=== PATIENT | female | born 1970 | race African-American/Black ===

== ENCOUNTER 2017-05-10 18:30 | Emergency (ER) | payer SELFPAY ==
[2017-05-10 20:18] LABS: Bilirubin Negative (Negative); Blood, Urine Small (Negative); Clarity CLOUDY (Clear); Glucose, Urine (Dipstick) Negative (Negative); Leukocyte Large (Negative); Nitrite Negative (Negative); Protein, Urine (Dipstick) Negative (Neg-Trace); Specific Gravity, Urine 1.008 (1.002-1.036); Urobilinogen 0.2 mg/dL (0.2-1.0)
[2017-05-10 20:19] LABS: Bacteria/HPF Rare-Few HPF (None Seen); Hyaline Casts/LPF 0-3 HYALINE CAST LPF (0-3 Hyaline); RBC/HPF 0-3 HPF (0-3); Squamous Epithelial None Seen HPF (0-3); Yeast-AUWi Flag 20.1 (0-25.0)
[2017-05-10 20:22] LABS: Pregnancy Test - Urine (BHCG) Negative (Negative); Pregu Control Background? CLEAR/WHITE (CLR/WHITE); Pregu Control Bar Appear? YES (CONTROL BAR); Specific Gravity 1.008 (1.002-1.036)
[2017-05-10] MEDS ORDERED: Magnesium Citrate 300 ML BOT ONE (20:57)
== END 2017-05-10 21:10 | disposition home or self-care (01) ==
LOC: ERS 18:30
DX: K59.00 Constipation, unspecified (principal); N39.0 Urinary tract infection, site not specified; I12.0 Hypertensive chronic kidney disease with stage 5 chronic kidney disease or end stage renal disease; N18.6 End stage renal disease; F32.9 Major depressive disorder, single episode, unspecified
CPT/HCPCS: 81003; 81015; 81025; 99284

== ENCOUNTER 2017-06-07 08:03 | Outpatient (CLI) | payer SELFPAY | END 2017-06-07 08:04 | disposition home or self-care (01) | LOC: BICMAMMO 08:03 | PROVIDERS: ATTEND Nurse Practitioner Family | DX: Z12.31 Encounter for screening mammogram for malignant neoplasm of breast (principal); Z00.00 Encounter for general adult medical examination without abnormal findings; Z80.3 Family history of malignant neoplasm of breast | CPT/HCPCS: 77067 ==

== ENCOUNTER 2018-08-04 15:25 | Emergency (ER) | payer SELFPAY ==
[~2018-08-04 15:25] MED LIST: ISOVUE-370 76%-LOCM 1 ML ONE
--- NOTE | 2018-08-04 15:50 | RAD ---
Chest AP view INDICATION: Shortness of breath with labored breathing COMPARISON: Prior chest radiograph dated August 15, 2005 FINDINGS:There is widening of the right paratracheal space. Heart size is normal. Pulmonary vasculatu re appears within normal limits. The lungs are clear. No pleural effusion or pneumothorax is evident. No acute osseous abnormality is evident. IMPRESSION: Widening of the right paratracheal space may reflect lymphadenopathy or a vascular anomal y such as an aneurysm. Infiltrating mass in this location cannot be entirely excluded. Recommend further evaluation with a CT of the thorax utilizing IV contrast.
[2018-08-04 15:56] LABS: #Eosinphils 0.1 thou/uL (0.0-0.7); #Lymphocytes 2.9 thou/uL (1.20-3.40); #Monocytes 0.5 thou/uL (0.11-0.59); #Neutrophils 3.7 thou/uL (1.40-6.50); %Basophils 0.5 % (0.0-1.0); %Eosinophils 1.2 % (0.0-10.0); %Lymphocytes 40.5 % (21.0-51.0); %Monocytes 6.4 % (0.0-10.0); %Neutrophils 51.4 % (42.0-75.0); Hemoglobin 11.8 g/dL (12.0-16.0); Mean Corpuscular HGB CONC 32.2 g/dL (32.0-36.0); Mean Corpuscular Volume 86.9 fL (78.0-98.0); Mean Platelet Volume 6.7 fL (7.4-10.4); Platelet Count 294 thou/uL (130-400); RBC Distribution Width 12.9 % (11.5-14.5); White Blood Cell (WBC) Count 7.2 thou/uL (4.8-10.8)
[2018-08-04] MEDS ORDERED: Nitroglycerin 2% Ointment 1 INCH/1 GM Packet ONE (16:13)
[2018-08-04] MEDS ORDERED: Lidocaine Viscous Sol 2% 15 ml UD Cup ONE (16:13)
[2018-08-04] MEDS ORDERED: Mag-Al 1200 mg/1200 mg/30 ML UDCUP ONE (16:13)
[2018-08-04] MEDS ORDERED: Aspirin Chewable 81 MG TAB ONE (16:13)
[2018-08-04 16:16] LABS: ALT (SGPT) 7 U/L (8-55); AST (SGOT) 16 U/L (5-34); Albumin 3.8 g/dL (3.5-5.0); Alkaline Phosphatase 65 U/L (40-150); Anion Gap 13 mmol/L (10-20); BUN (Urea Nitrogen) 18 mg/dL (7.0-18.7); Bilirubin, Total 0.3 mg/dL (0.2-1.2); CK (CPK) 104 U/L (29-168); Calc. Creatinine Clearance 0 mL/min (70-130); Calcium 9.1 mg/dL (7.8-10.44); Carbon Dioxide 21 mmol/L (22-29); Chloride 107 mmol/L (98-107); Estimated GFR-MDRD 53; Glucose 104 mg/dL (70-105); Potassium 3.4 mmol/L (3.5-5.1); Protein, Total 6.8 g/dL (6.0-8.3); Sodium 138 mmol/L (136-145)
[2018-08-04] MEDS ORDERED: Morphine 4 MG/ML VIAL ONE ×2 (16:54→20:24)
[2018-08-04 17:32] LABS: Pregnancy Test - Urine (BHCG) Negative (Negative); Pregu Control Background? CLEAR/WHITE (CLR/WHITE); Pregu Control Bar Appear? YES (CONTROL BAR)
--- NOTE | 2018-08-04 19:11 | CT ---
CT OF THE THORAX UTILIZING IV CONTRAST AND 3D REFORMATTED IMAGING: Indication: History of hypertension, shortness of breath, diaphoresis and bilateral upper extremity p ain. Comparison: Chest radiograph, 08-04-18; chest radiograph 08-15-05. FINDINGS: There is an aberrant right subclavian artery. There is prominent aneurysmal dilatation of the aberran t right subclavian artery along the right paratracheal region measuring up to 3.8 cm. The right subcl jyothi artery is diffusely aneurysmal throughout its course. There is an additional 3.7 cm aneurysm se en involving the right axillary artery with an area of eccentric mural thrombus. The right common car otid artery, left common carotid artery, and left subclavian artery are of normal caliber. Visualized aspects of the left axillary artery is normal caliber. There is a small right pleural effusion. Ther e are scattered areas of subsegmental volume loss. Due to the aberrant right subclavian artery, right subclavian artery aneurysm and aortic arch there is mild narrowing of the midline trachea. There are numerous varicosities seen involving the upper chest wall. No acute osseous abnormality is evident. IMPRESSION: 1. 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 2. 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 3. Vascular surgical consultation is recommended. 4. Small right pleural effusion with scattered areas of subsegmental volume loss. POS: BH
[2018-08-04] MEDS ORDERED: Ondansetron PF 4 MG/2 ML Vial ONE (20:24)
== END 2018-08-04 21:35 | disposition short-term general hospital (02) ==
LOC: ERS 15:25
DX: I72.1 Aneurysm of artery of upper extremity (principal); I72.8 Aneurysm of other specified arteries; I12.0 Hypertensive chronic kidney disease with stage 5 chronic kidney disease or end stage renal disease; N18.6 End stage renal disease; Z79.899 Other long term (current) drug therapy
CPT/HCPCS: 36415; 71045; 71275; 80053; 81025; 82550; 84484; 85025; 93005; 96374; 96375; 96376; J2270; J2405; Q9966

== ENCOUNTER 2018-11-15 02:39 | Observation (INO) | payer SELFPAY ==
[2018-11-15] MEDS ORDERED: Metoprolol Tartrate 5 MG/5 ML VIAL ONE (03:04)
[2018-11-15] MEDS ORDERED: Nitroglycerin 2% Ointment 1 INCH/1 GM Packet ONE (03:04)
[2018-11-15] MEDS ORDERED: Aspirin Chewable 81 MG TAB ONE (03:04)
[2018-11-15 03:59] LABS: #Lymphocytes 2.1 thou/uL (1.20-3.40); #Monocytes 0.6 thou/uL (0.11-0.59); #Neutrophils 5.2 thou/uL (1.40-6.50); %Basophils 0.1 % (0.0-1.0); %Eosinophils 0.4 % (0.0-10.0); %Lymphocytes 26.7 % (21.0-51.0); %Monocytes 7.3 % (0.0-10.0); %Neutrophils 65.5 % (42.0-75.0); Hemoglobin 9.7 g/dL (12.0-16.0); Mean Corpuscular HGB CONC 32.8 g/dL (32.0-36.0); Mean Corpuscular Hemoglobin 25.1 pg (27.0-31.0); Mean Corpuscular Volume 76.6 fL (78.0-98.0); Mean Platelet Volume 7.3 fL (7.4-10.4); Platelet Count 369 thou/uL (130-400); RBC Distribution Width 16.3 % (11.5-14.5); Red Blood Cell (RBC) Count 3.86 mill/uL (4.20-5.40); White Blood Cell (WBC) Count 7.9 thou/uL (4.8-10.8)
[2018-11-15 04:16] LABS: ALT (SGPT) 15 U/L (8-55); AST (SGOT) 28 U/L (5-34); Albumin 3.8 g/dL (3.5-5.0); Alkaline Phosphatase 107 U/L (40-150); Anion Gap 14 mmol/L (10-20); BUN (Urea Nitrogen) 13 mg/dL (7.0-18.7); Bilirubin, Total 0.4 mg/dL (0.2-1.2); CK (CPK) 34 U/L (29-168); Calc. Creatinine Clearance 0 mL/min (70-130); Calcium 9.8 mg/dL (7.8-10.44); Carbon Dioxide 23 mmol/L (22-29); Chloride 104 mmol/L (98-107); Estimated GFR-MDRD 81; Globulin 3.9 g/dL (2.4-3.5); Glucose 107 mg/dL (70-105); Protein, Total 7.7 g/dL (6.0-8.3); Sodium 138 mmol/L (136-145)
[2018-11-15] MEDS ORDERED: Acetaminophen 500 MG TAB ONE (04:48)
[2018-11-15] MEDS ORDERED: cefTRIAXone\\ROCEPHIN 2 GM VIAL ONE (04:48)
[2018-11-15] MEDS ORDERED: Azithromycin 500 MG VIAL ONE (05:18)
[2018-11-15] MEDS ORDERED: Amoxicillin/Potassium Clav 250 MG TAB ONE (05:18)
[2018-11-15] MEDS ORDERED: Potassium Chloride 20 MEQ TAB ONE (05:18)
[2018-11-15] MEDS ORDERED: Ondansetron PF 4 MG/2 ML Vial IVP PRN (06:04)
[2018-11-15] MEDS ORDERED: Ondansetron ODT 4 MG TAB PO PRN (06:04)
[2018-11-15] MEDS ORDERED: Acetaminophen 325 MG TAB PO PRN (06:04)
[2018-11-15] MEDS ORDERED: Acetaminophen 650 MG Suppository PR PRN (06:04)
[2018-11-15 06:05] VITALS: BMI 27.1
[2018-11-15 07:19] LABS: Troponin I Less than 0.010 ng/mL (< 0.028)
--- NOTE | 2018-11-15 07:26 | CT ---
CTA CHEST WITH CONTRAST WITH 3D VOLUME RENDERING: Date: 11/15/18 COMPARISON: 08/04/18. CLINICAL HISTORY: New onset chest pain. FINDINGS: Interval placement of endovascular graft at the level of the distal aortic arch and descending thorac ic aorta, which excludes the previously documented aneurysmal dilatation of aberrant right subclavian artery. Noncontrast opacified dilatation of this structure does remain, although incompletely assess ed. Prominence of the right axillary artery is again demonstrated, incompletely evaluated. Stable mil d ectasia of the ascending thoracic aorta is present at 3.6 cm. There is no evidence of a large, central filling defect of the pulmonary arterial system. Scattered b ilateral pulmonary parenchymal opacities indicate atelectasis. No evidence of significant pleural flu id. Trace pericardial fluid is seen. Small hypoattenuation of the left hepatic lobe is incidentally n oted, grossly stable. There is incomplete assessment of vague hypoattenuation of the partially imaged superior pole of the right kidney. No acute osseous abnormality. IMPRESSION: 1. No large, central pulmonary embolus. 2. Interval performance of endograft placement of the aortic arch and ascending thoracic aorta exclu ding origin of previously noted prominent aneurysmal dilatation of the aberrant right subclavian apple ry. Prominence of the right axillary artery remains, although incompletely assessed. There is ectasia of the ascending thoracic aorta, stable, measuring approximately 3.6 cm. 3. Bilateral pulmonary parenchymal atelectasis. POS: NWK
--- NOTE | 2018-11-15 07:43 | HP ---
PRIMARY CARE DOCTOR: CODE STATUS: Full code. TIME OF EVALUATION: 6 a.m. CHIEF COMPLAINT: Chest pain. HISTORY OF PRESENT ILLNESS: A 47 years old female patient with past medical history of AAA, hypertension, CABG x3 vessel, end-stage renal disease that has resolved , not on hemodialysis anymore. The patient presented with chest pain that was constant since yesterday. No clear triggers, no alleviating factors. Symptoms are on the left side. No specific radiation. Pain was 8/10. REVIEW OF SYSTEMS: CONSTITUTIONAL: No fever, chills, or generalized weakness. RESPIRATORY: No cough, sputum production, or shortness of breath. CARDIOVASCULAR: The patient had chest pain. No palpitation. GASTROINTESTINAL: No nausea, vomiting, diarrhea, or abdominal pain. BAIT PACKER: No dizziness, headache, or feeling lightheaded. GENITOURINARY: No burning on urination. EXTREMITIES: No leg swelling. All other systems reviewed were negative except for the findings mentioned above. PAST MEDICAL HISTORY: Includes hypertension; end-stage renal disease, not on hemodialysis placement. PAST SURGICAL HISTORY: Dialysis catheter that has been removed and shunt placement in the right upper extremity. PSYCHIATRIC HISTORY: Includes depression. FAMILY HISTORY: Reviewed and non contributory for current presentation. SOCIAL HISTORY: The patient drinks socially once a month. No drugs. No smoking history. KNOWN ALLERGIES: No known drug allergies. REPORTED MEDICATIONS: 1. Hydralazine. 2. Carvedilol. 3. Terazosin. 4. Gabapentin. 5. Coumadin. 6. Nifedipine. 7. Aspirin. PHYSICAL EXAMINATION: VITAL SIGNS: On presentation, blood pressure 162/108 with heart rate 99, respiratory rate was 18, temperature 99.1, pain was 8/10, oxygen saturation 99% on room air. GENERAL APPEARANCE: The patient is alert, oriented, in no acute distress. HEENT: Eyes; normal conjunctivae. Moist oral mucosa. Anicteric. No JVD. RESPIRATORY: Bilateral air entry. Scattered rales on the right side. No wheezes. Symmetric expansion. CARDIOVASCULAR: Normal rate. Regular rhythm. No murmurs. No gallop. No edema. ABDOMEN: Soft. Normal bowel sounds. MUSCULOSKELETAL: Baseline range of motion and strength. SKIN: Warm and intact. No pallor. No rash. No redness. Capillary refill seems to be intact. NEURO: No evidence of any new focal weakness. Cranial nerves seems to be intact. PSYCH: Patient is in good mood. No anxiety. Optimal judgment. DIAGNOSTIC DATA: CAT scan was done. The patient has a right lower lobe infiltrate. Labs were reviewed. The patient has white count of 7.9, hemoglobin 9.7, MCV 76.6, platelet count 369. Chemistry; sodium 138, potassium 3.0, chloride 104, carbon dioxide 23, anion gap 14, BUN 13, creatinine 0.9, GFR 81, glucose 107, calcium 9.8. Total bilirubin 0.4. LFTs were negative. CK 34. Troponin was negative. Beta-natriuretic peptide 26.8. Serum total protein is 7.7, albumin 3.8. ASSESSMENT AND PLAN: The patient will be placed in the hospital with the following medical problems: 1. Right lower lobe infiltrate, possible community-acquired pneumonia. The patient will be started on antibiotics and we will continue for now. We will monitor patient's progress and adjust treatment accordingly. 2. Hypokalemia, potassium 3.0. We will replace electrolytes as needed. 3. Uncontrolled hypertension with systolic blood pressure in 160s, reconcile home medications, we will treat accordingly. The patient is at risk for sepsis, so we will not treat aggressively. 4. Deep vein thrombosis prophylaxis. Job ID: [id number] [facility]
[2018-11-15] MEDS ORDERED: Cefepime 2 GM in Sodium Chloride 0.9% 100 ML IVPB SCH (09:00)
--- NOTE | 2018-11-15 09:44 | RAD ---
CHEST 1 VIEW: Date: 11/15/18 HISTORY: Chest pain. COMPARISON: 08/04/18. FINDINGS: There is a stent projecting over the ascending thoracic aorta, aortic knob, and proximal descending t horacic aorta. There is persistent fullness along the right paratracheal region. Refer to recent CT f or further detail. Normal cardiac silhouette. Linear opacities in the right lung base. No pneumothora x. Surgical clips project over the neck. IMPRESSION: 1. Radiopacity in the right lung base, correlate for atelectasis, pneumonia, or infiltrate. 2. Persistent fullness along the right paratracheal region. Refer to recent CT angiogram of chest fo r further detail. POS: JO-ANN
[2018-11-15 10:23] LABS: Troponin I 0.013 ng/mL (< 0.028)
[2018-11-15] MEDS ORDERED: Potassium Chloride 20 MEQ TAB PO SCH (10:45)
[2018-11-15 11:30] LABS: INR-International Normal Ratio 1.5; Prothrombin Time 18.2 SEC (12.0-14.7)
[2018-11-15] MEDS ORDERED: Carvedilol 25 MG TAB PO SCH (13:15)
[2018-11-15] MEDS ORDERED: Warfarin Sodium 5 MG TAB PO SCH ×2 (13:15→17:00)
[2018-11-15] MEDS: Gabapentin 100 MG CAP PO SCH ×2 (13:42→20:13)
[2018-11-15] MEDS: Enoxaparin Sodium 40 MG/0.4 ML SYRINGE SC SCH (13:42)
[2018-11-15] MEDS ORDERED: ISOVUE-370 76%-LOCM 1 ML ONE (13:48)
[2018-11-15] MEDS ORDERED: NIFEdipine XL 60 MG TAB PO SCH (16:15)
--- NOTE | 2018-11-15 17:54 | PRG ---
DATE OF SERVICE: 11/15/2018 SUBJECTIVE: Ms. Shrestha is a very pleasant 47-year-old female with past medical history significant for recent endograft repair of her descending thoracic aorta and "bypass" surgery, hypertension, and recent initiation of blood thinner for currently unknown reasons, who presented to the emergency department with complaints of shortness of breath. The patient described the shortness of breath with some mild pleuritic chest pain. Her symptoms have much improved. She continues to remain fairly hypertensive with readings in the 170s and 180s despite re-initiation of most of her home medications. The patient has ambulated the halls. She has no nausea or vomiting and is tolerating a diet. OBJECTIVE: VITAL SIGNS: Blood pressure 176/103, pulse 88, O2 saturation is 100% on room air, temperature 98. GENERAL: This patient is a well-appearing female, in no acute distress. HEENT: Head is atraumatic and normocephalic. Mucous membranes are moist. NECK: Trachea is midline. No JVD. CV: S1 and S2. Regular rate and rhythm. No appreciable murmurs, rubs, or gallops. LUNGS: Regular respiratory rate and pattern. Clear to auscultation bilaterally. ABDOMEN: Positive bowel sounds. Soft, nontender. EXTREMITIES: The patient has some left upper extremity swelling. No edema in her lower extremities. SKIN: Warm and dry. NEUROLOGIC: Cranial nerves 2 through 12 are grossly intact. The patient is nonfocal. ASSESSMENT: 1. Shortness of breath and mild pleuritic chest pain at presentation, symptomatically much improved, unknown etiology, echo pending. 2. Recent repair of descending thoracic aortic aneurysm in September 2018 with endograft. 3. Left upper extremity swelling, no deep venous thrombosis per recent upper extremity ultrasound per patient, unclear why the patient is currently on Coumadin. 4. Atelectasis on CTA, no evidence of pneumonia or pulmonary embolism. 5. Prominence of right axillary artery. PLAN: At this time, we will await echo results prior to discharge. The patient is at high risk given her recent hospitalization. I am unclear why she is on Coumadin, and perhaps she may need prophylactic therapy for DVTs. She is followed in [place] and records are currently unavailable. There was some concern initially for pneumonia, however, the patient has had no cough, fever, chills, or white count, and no evidence of pneumonia on the CT. We will continue to monitor. We will reinstate the patient's nifedipine and continue to monitor blood pressure. Regarding her presenting symptoms, she does feel improved. I have advised her to ambulate the halls. Job ID: [id number]
[2018-11-15] MEDS ORDERED: Melatonin 3 MG TAB PO PRN (19:23)
[2018-11-15] MEDS: hydrALAZINE 25 MG TAB PO SCH (20:12)
[2018-11-15] MEDS: Carvedilol 25 MG TAB PO SCH (20:13)
[2018-11-15] MEDS ORDERED: hydrALAZINE 25 MG TAB PO SCH (21:00)
[2018-11-16 05:24] LABS: INR-International Normal Ratio 1.5; Prothrombin Time 18.4 SEC (12.0-14.7)
[2018-11-16 05:25] LABS: #Basophils 0.1 thou/uL (0.0-0.2); #Eosinphils 0.1 thou/uL (0.0-0.7); #Monocytes 0.7 thou/uL (0.11-0.59); #Neutrophils 4.1 thou/uL (1.40-6.50); %Basophils 0.8 % (0.0-1.0); %Eosinophils 1.6 % (0.0-10.0); %Lymphocytes 28.5 % (21.0-51.0); %Monocytes 9.6 % (0.0-10.0); %Neutrophils 59.4 % (42.0-75.0); Hemoglobin 9.4 g/dL (12.0-16.0); Mean Corpuscular HGB CONC 31.2 g/dL (32.0-36.0); Mean Corpuscular Hemoglobin 24.8 pg (27.0-31.0); Mean Corpuscular Volume 79.6 fL (78.0-98.0); Mean Platelet Volume 7.7 fL (7.4-10.4); Platelet Count 330 thou/uL (130-400); RBC Distribution Width 16.2 % (11.5-14.5); Red Blood Cell (RBC) Count 3.79 mill/uL (4.20-5.40); White Blood Cell (WBC) Count 6.9 thou/uL (4.8-10.8)
[2018-11-16 05:33] LABS: Anion Gap 14 mmol/L (10-20); BUN (Urea Nitrogen) 9 mg/dL (7.0-18.7); Calc. Creatinine Clearance 110 mL/min (70-130); Calcium 9.4 mg/dL (7.8-10.44); Carbon Dioxide 20 mmol/L (22-29); Chloride 107 mmol/L (98-107); Estimated GFR-MDRD Greater than 90; Glucose 90 mg/dL (70-105); Potassium 3.6 mmol/L (3.5-5.1); Sodium 137 mmol/L (136-145)
[2018-11-16] MEDS ORDERED: Azithromycin 500 MG in Sodium Chloride 0.9% 250 ML 250 ML IVPB SCH (06:00)
[2018-11-16] MEDS ORDERED: Aspirin 81 mg Enteric Coated Tablet PO SCH (09:00)
[2018-11-16] MEDS ORDERED: Terazosin HCl 1 MG CAP PO SCH (09:00)
[2018-11-16] MEDS ORDERED: NIFEdipine XL 60 MG TAB PO SCH (09:00)
[2018-11-16] MEDS: Carvedilol 25 MG TAB PO SCH (09:20)
[2018-11-16] MEDS: Gabapentin 100 MG CAP PO SCH (09:20)
[2018-11-16] MEDS: hydrALAZINE 25 MG TAB PO SCH (09:20)
[2018-11-16] MEDS: Enoxaparin Sodium 40 MG/0.4 ML SYRINGE SC SCH (09:21)
[2018-11-16 12:07] VITALS: BP 138/87; TEMP 99.6
[2018-11-16 12:49] LABS: Bilirubin Negative (Negative); Blood, Urine 1+ (Negative); Clarity Clear (Clear); Glucose, Urine (Dipstick) Normal (Negative); Leukocyte Negative Leu/uL (Negative); Nitrite Negative (Negative); Protein, Urine (Dipstick) 300 mg/dL (Neg-Trace); Squamous Epithelial 0-3 HPF (0-3); Urobilinogen Normal mg/dL (Less than 2)
[2018-11-16 12:53] LABS: Bacteria/HPF 1+ HPF (None Seen)
[2018-11-16 12:58] LABS: Urine Culture Reflex Yes Yes
--- NOTE | 2018-11-16 13:49 | RAD ---
EXAM: Chest PA and lateral: HISTORY: Fever. COMPARISON: 11/15/2018 FINDINGS: Stable increased density along the right paratracheal region. Heart: Stable cardiac silhouette Aorta: Stable endovascular stent Pulmonary vessels: Normal Costophrenic angles: Costophrenic angles are clear. Lungs: Increased linear opacities in the right lung base which may represent infiltrate superimposed upon scar/atelectasis. Pneumothorax: No pneumothorax Osseous structures: No osseous abnormalities IMPRESSION: Increased density in the right lung base as described above. Continued surveillance is recommended
[2018-11-16] MEDS ORDERED: Warfarin Sodium 5 MG TAB PO SCH (17:00)
[2018-11-16] MEDS ORDERED: Warfarin Sodium 2.5 MG TAB PO SCH (17:00)
--- NOTE | 2018-11-17 01:54 | DIS ---
DATE OF ADMISSION: 11/15/2018 DATE OF DISCHARGE: 11/16/2018 This is Liat Gaxiola PA-C dictating a report for Shabana Barfield MD. CHIEF COMPLAINT: On admission: Shortness of breath and pleuritic chest pain. DISCHARGE DIAGNOSES: 1. Shortness of breath and mild pleuritic chest pain at presentation, resolved, CTA does show some mild atelectasis. 2. Atelectasis, with questionable infiltrate on chest x-ray. 3. Recent repair of descending thoracic aortic aneurysm in September 2018, with endograft. 4. Left upper extremity swelling, no deep vein thrombosis per recent upper extremity ultrasound per patient, unclear why the patient is currently on Coumadin. 5. Prominence of right axillary artery on CT, known finding. BRIEF HOSPITAL COURSE: Ms. Shrestha is a very pleasant 47-year-old female with past medical history significant for recent endograft repair of her descending thoracic aorta and "bypass" surgery, hypertension, and recent initiation of blood thinner for currently unknown reasons, who presented to the emergency room with complaints of shortness of breath. The patient describes the shortness of breath along with some pleuritic type chest pain. She had no orthopnea. She presented to the emergency department for further workup and treatment. Initial x-ray did show a possible right lower lobe infiltrate, however, CTA performed of the chest showed some mild atelectasis, deemed appropriate after recent hospitalization and surgery last month. In any case, pneumonia was initially suspected and she was started on cefepime. The patient had no cough, fever, or chills. Her antibiotics were deescalated. Echocardiogram was ordered, which showed preserved left ventricular systolic function with EF 50% to 55% and some mild concentric LVH. On her 2nd night in the hospital, the patient did have a 99.7 degree temperature. Urinalysis revealed no definitive UTI, and was sent for culture comma. Repeat 2-view chest x-ray did show some continued atelectasis with possible infiltrate in the right. The patient has ambulated and states that she feels well. She has no shortness of breath or further chest pain. She remained mildly hypertensive, and her hydralazine was increased, with good response in her blood pressure. On the morning of my exam, she has no complaints. She has no cough, chest pain, or shortness of breath. No nausea or vomiting. She is tolerating a full diet. DISCHARGE DISPOSITION: Home. DISCHARGE CONDITION: Stable. DISCHARGE MEDICATIONS: 1. Aspirin 81 mg daily. 2. Carvedilol 25 mg p.o. b.i.d. 3. Gabapentin 100 mg p.o. t.i.d. 4. Nifedipine 50 mg p.o. daily. 5. Terazosin 1 mg p.o. daily. 6. Warfarin 5 mg p.o. daily. 7. Hydralazine 75 mg p.o. t.i.d. The patient will also be sent home with a prophylactic course of antibiotic, which is Omnicef 300 mg p.o. q.12 for the next 5 days. DISCHARGE INSTRUCTIONS AND FOLLOWUP: The patient has good and consistent followup with her surgeon and pen rider in [place], and she does have an appointment next week. I have encouraged her to ask the definitive reason why she is on blood thinner. Her INR was subtherapeutic here, but she has blood work scheduled for early next week along with followup as mentioned. She will continue aggressive risk factor modification and monitoring of her blood pressure. All results and findings of testing have been explained to the patient. All questions answered. This case was discussed with Dr. Barfield and he agrees with discharge as outlined above. Job ID: [id number]
== END 2018-11-16 14:54 | disposition home or self-care (01) ==
LOC: ERS 02:39 → 2SW 04:30
PROVIDERS: ADMIT Hospitalist; ATTEND Hospitalist
DX: R06.02 Shortness of breath (principal); R07.81 Pleurodynia; J98.11 Atelectasis; R22.32 Localized swelling, mass and lump, left upper limb; E87.6 Hypokalemia; I12.0 Hypertensive chronic kidney disease with stage 5 chronic kidney disease or end stage renal disease; N18.6 End stage renal disease; F32.9 Major depressive disorder, single episode, unspecified; Z95.1 Presence of aortocoronary bypass graft; Z86.79 Personal history of other diseases of the circulatory system; Z98.890 Other specified postprocedural states; Z79.82 Long term (current) use of aspirin; Z79.01 Long term (current) use of anticoagulants; Z79.899 Other long term (current) drug therapy
CPT/HCPCS: 36415; 71045; 71046; 71275; 80048; 80053; 81001; 82550; 83880; 84484; 85025; 85610; 87040; 87086; 93005; 93306; 96365; 96372; 96375; G0378; J0456; J0692; J0696; J1650; J3490; Q9966

== ENCOUNTER 2020-03-18 14:00 | Inpatient (IN) | payer SELFPAY ==
[2020-03-18] MEDS ORDERED: Dexamethasone 4 mg/ml Vial ONE (14:33)
--- NOTE | 2020-03-18 14:37 | RAD ---
Chest AP view INDICATION: Dyspnea COMPARISON: Chest 2 views dated November 16, 2018 FINDINGS: Lungs: There is bilateral perihilar interstitial and airspace opacities Cardiac silhouette: There is moderate cardiomegaly Pulmonary vasculature: There is pulmonary vascular congestion Pleural spaces: There are tiny bilateral pleural effusions Upper abdomen: No abnormality seen. Osseous structures: No acute osseous abnormality. Additional findings: The aortic endograft stent is unchanged in position. There are surgical clips a gain seen involving the supraclavicular regions bilaterally. IMPRESSION: Findings suspicious for CHF
[2020-03-18 14:43] LABS: #Basophils 0.1 thou/uL (0.0-0.2); #Eosinphils 0.1 thou/uL (0.0-0.7); #Lymphocytes 1.7 thou/uL (1.20-3.40); #Monocytes 0.3 thou/uL (0.11-0.59); #Neutrophils 2.6 thou/uL (1.40-6.50); %Basophils 1.9 % (0.0-1.0); %Eosinophils 3.1 % (0.0-10.0); %Lymphocytes 35.9 % (21.0-51.0); %Monocytes 5.6 % (0.0-10.0); %Neutrophils 53.5 % (42.0-75.0); Mean Corpuscular HGB CONC 32.8 g/dL (32.0-36.0); Mean Corpuscular Hemoglobin 30.5 pg (27.0-31.0); Mean Platelet Volume 8.1 fL (7.4-10.4); Platelet Count 185 thou/uL (130-400); RBC Distribution Width 12.5 % (11.5-14.5); Red Blood Cell (RBC) Count 4.27 mill/uL (4.20-5.40); White Blood Cell (WBC) Count 4.9 thou/uL (4.8-10.8)
[2020-03-18] MEDS ORDERED: Albuterol 200 PUFF (6.7GM INHALER) ONE (14:47)
[2020-03-18 15:01] LABS: ALT (SGPT) 18 U/L (8-55); AST (SGOT) 24 U/L (5-34); Albumin 3.6 g/dL (3.5-5.0); Alkaline Phosphatase 76 U/L (40-110); Anion Gap 13 mmol/L (10-20); BUN (Urea Nitrogen) 16 mg/dL (7.0-18.7); Bilirubin, Total 0.6 mg/dL (0.2-1.2); Calc. Creatinine Clearance 0 mL/min (70-130); Carbon Dioxide 26 mmol/L (22-29); Chloride 108 mmol/L (98-107); Globulin 3.2 g/dL (2.4-3.5); Glucose 85 mg/dL (70-105); Potassium 3.2 mmol/L (3.5-5.1); Protein, Total 6.8 g/dL (6.0-8.3); Sodium 144 mmol/L (136-145)
--- NOTE | 2020-03-18 16:34 | PDOC.HHP ---
Hospitalist HPI - History of Present Illness History of Present Illness: ADMISSION DATE: 03/18/2020 TIME OF ASSESSMENT: 1545 PRIMARY CARE PHYSICIAN: Carl CHIEF COMPLAINT: Shortness of breath HPI: Patient is a 49-year-old female past medical history significant for end- stage renal disease previously on dialysis and hypertension. She presents to the ER today after experiencing shortness of breath for couple days. Patient also states that when she was swallowing it felt like there was congestion in her throat. She denies any fever, abdominal discomfort, contact with sick persons. Patient does endorse orthopnea, cough with clear phlegm, increased urination. Patient states that she has felt better when she props herself up at night and has felt short of breath first thing in the morning when getting up for the past 4 days. When she is up moving this resolves. Patient has also noted that she has had pedal edema intermittently for the past year. Patient states that she has been compliant with her medications. When she was younger she was not compliant and stated that led to her renal failure and need for dialysis. With time and medications she was able to recover her kidneys and no longer needs dialysis. ED COURSE: Vital Signs: Blood pressure 222/123, pulse 102, respiratory rate 18, temp 99.2, O2 saturation 96% on room air Patient had a EKG, chest x-ray, lab work completed in the ER. She was administered furosemide 40 mg IV, nitro 1 inch transdermal, Ventolin 4 puffs inhaler, dexamethasone 8 mg IV push. PAST MEDICAL HISTORY: Hypertension, end-stage renal disease requiring dialysis recovered, aneurysm to the right arm and chest, depression, anxiety PAST SURGICAL HISTORY: Dialysis catheter and shunt placement to right upper extremityremoved at this time, stent for aneurysm SOCIAL HISTORY: Patient lives at home. She does admit to drinking wine and smoking marijuana socially. She denies any tobacco use. FAMILY HISTORY: Hypertension ALLERGIES: No known drug allergies CURRENT MEDICATIONS: Hydralazine 75 mg 2 times a day Carvedilol 25 mg 2 times a day Terazosin 1 mg once a day Gabapentin 100 mg every 8 hours Nifedipine 60 mg 1 tab daily Aspirin 81 mg daily - Exam General Appearance: NAD, awake alert ENT: normocephalic atraumatic Neck: supple Heart: RRR, no murmur, no gallops, no rubs, normal peripheral pulses Respiratory: no rales, normal chest expansion, wheezes (at bases) Gastrointestinal: soft, non-tender, non-distended, normal bowel sounds Musculoskeletal: normal tone, no muscle wasting Psychiatric: normal affect, normal behavior, A&O x 3 Hospitalist Results - Labs Result Diagrams: 03/19/20 04:38 03/19/20 04:38 Lab results: WBC 4.9 thou/uL (4.8-10.8) 03/18/20 14:31 Hgb 13.0 g/dL (12.0-16.0) 03/18/20 14:31 Hct 39.7 % (36.0-47.0) 03/18/20 14:31 MCV 93.0 fL (78.0-98.0) 03/18/20 14:31 Plt Count 185 thou/uL (130-400) 03/18/20 14:31 Neutrophils % 53.5 % (42.0-75.0) 03/18/20 14:31 Sodium 144 mmol/L (136-145) 03/18/20 14:31 Potassium 3.2 mmol/L (3.5-5.1) L 03/18/20 14:31 Chloride 108 mmol/L (98-107) H 03/18/20 14:31 Carbon Dioxide 26 mmol/L (22-29) 03/18/20 14:31 BUN 16 mg/dL (7.0-18.7) 03/18/20 14:31 Creatinine 1.18 mg/dL (0.6-1.1) H 03/18/20 14:31 Glucose 85 mg/dL (70-105) 03/18/20 14:31 Calcium 9.0 mg/dL (7.8-10.44) 03/18/20 14:31 Total Bilirubin 0.6 mg/dL (0.2-1.2) 03/18/20 14:31 AST 24 U/L (5-34) 03/18/20 14:31 ALT 18 U/L (8-55) 03/18/20 14:31 Alkaline Phosphatase 76 U/L (40-110) 03/18/20 14:31 Troponin I 0.027 ng/mL (< 0.028) 03/18/20 14:31 B-Natriuretic Peptide 1247.6 pg/mL (0-100) H 03/18/20 14:31 Serum Total Protein 6.8 g/dL (6.0-8.3) 03/18/20 14:31 Albumin 3.6 g/dL (3.5-5.0) 03/18/20 14:31 - EKG Interpretation EKG: SR, LVH, Prolong QT 92bpm - Radiology Interpretation Chest x-ray Status: image reviewed by me, report reviewed by me Additional Comment: FINDINGS: Lungs: There is bilateral perihilar interstitial and airspace opacities Cardiac silhouette: There is moderate cardiomegaly Pulmonary vasculature: There is pulmonary vascular congestion Pleural spaces: There are tiny bilateral pleural effusions Upper abdomen: No abnormality seen. Osseous structures: No acute osseous abnormality. Additional findings: The aortic endograft stent is unchanged in position. There are surgical clips again seen involving the supraclavicular regions bilaterally. IMPRESSION: Findings suspicious for CHF Hospitalist H&P A/P - Plan Plan: Shortness of breath, possible new onset CHF exacerbation Lasix IV twice daily Echo in a.m. Cardiology consult Check TSH and mag Hypertension Restart home medications As needed antihypertensives available Hypokalemia Replace now and continue to monitor Chronic kidney disease Avoid nephrotoxic meds Recheck labs in a.m. CODE STATUS: Full Surrogate decision-maker is her children: Leobardo Holden Markesha Patient and care have been discussed with Dr. Barfield
[2020-03-18] MEDS ORDERED: hydrALAZINE 20 MG/ML VIAL SLOW IVP PRN (16:40)
[2020-03-18] MEDS ORDERED: Calcium Carbonate 500 MG ChewTAB PO PRN (16:40)
[2020-03-18] MEDS ORDERED: Potassium Chloride 20 MEQ TAB PO SCH (17:30)
[2020-03-18] MEDS ORDERED: Nitroglycerin 2% Ointment 1 INCH/1 GM Packet ONE (17:33)
[2020-03-18] MEDS ORDERED: Furosemide 40 MG/4 ML VIAL ONE (17:33)
[2020-03-18 18:08] LABS: Troponin I 0.025 ng/mL (< 0.028)
[2020-03-18 21:00] LABS: Troponin I 0.023 ng/mL (< 0.028)
[2020-03-18] MEDS: Labetalol HCl 100 MG/20 ML VIAL SLOW IVP PRN (21:27)
[2020-03-18] MEDS: Nitroglycerin 2% Ointment 1 INCH/1 GM Packet TOP SCH (21:27)
[2020-03-18] MEDS ORDERED: Carvedilol 25 MG TAB PO SCH (21:45)
[2020-03-18] MEDS: Acetaminophen 500 MG TAB PO PRN (23:57)
[2020-03-19 03:37] LABS: SARS-CoV-2 MS2 Positive; SARS-CoV-2 N Gene Negative; SARS-CoV-2 S Gene Negative; SARS-CoV-2 by NAA Not Detected (NotDetected); SARS-CoV-2 orf1ab Negative
[2020-03-19 04:55] LABS: #Lymphocytes 1.2 thou/uL (1.20-3.40); #Monocytes 0.2 thou/uL (0.11-0.59); #Neutrophils 2.9 thou/uL (1.40-6.50); %Basophils 0.5 % (0.0-1.0); %Eosinophils 0.1 % (0.0-10.0); %Lymphocytes 26.7 % (21.0-51.0); %Monocytes 5.6 % (0.0-10.0); %Neutrophils 67.2 % (42.0-75.0); Hemoglobin 12.3 g/dL (12.0-16.0); Mean Corpuscular HGB CONC 33.3 g/dL (32.0-36.0); Mean Corpuscular Hemoglobin 30.3 pg (27.0-31.0); Mean Corpuscular Volume 90.8 fL (78.0-98.0); Mean Platelet Volume 7.9 fL (7.4-10.4); Platelet Count 193 thou/uL (130-400); RBC Distribution Width 12.5 % (11.5-14.5); Red Blood Cell (RBC) Count 4.05 mill/uL (4.20-5.40); White Blood Cell (WBC) Count 4.4 thou/uL (4.8-10.8)
[2020-03-19 05:25] LABS: Anion Gap 15 mmol/L (10-20); BUN (Urea Nitrogen) 18 mg/dL (7.0-18.7); Calc. Creatinine Clearance 71 mL/min (70-130); Calcium 8.3 mg/dL (7.8-10.44); Carbon Dioxide 22 mmol/L (22-29); Chloride 107 mmol/L (98-107); Glucose 89 mg/dL (70-105); Magnesium 1.6 mg/dL (1.6-2.6); Potassium 3.1 mmol/L (3.5-5.1); Sodium 141 mmol/L (136-145)
[2020-03-19] MEDS ORDERED: Furosemide 40 MG/4 ML VIAL SLOW IVP SCH (06:00)
[2020-03-19] MEDS: Furosemide 20 MG/2 ML VIAL SLOW IVP SCH ×2 (06:01→15:14)
[2020-03-19] MEDS ORDERED: Carvedilol 25 MG TAB PO SCH ×3 (08:00→12:45)
[2020-03-19] MEDS: hydrALAZINE 25 MG TAB PO SCH ×3 (08:01→20:51)
[2020-03-19] MEDS: Acetaminophen 500 MG TAB PO PRN ×2 (08:02→22:18)
[2020-03-19] MEDS: Nitroglycerin 2% Ointment 1 INCH/1 GM Packet TOP SCH ×2 (08:02→20:50)
[2020-03-19] MEDS: Aspirin 325 MG TAB PO SCH (08:02)
[2020-03-19] MEDS ORDERED: Potassium Chloride 20 MEQ TAB PO SCH (08:15)
[2020-03-19] MEDS ORDERED: Electrolyte Replacement Protocol 1 EACH FS SCH (08:15)
[2020-03-19] MEDS ORDERED: Magnesium 2 GM/50 ML 2 GM in Premix Bag 1 BAG IVPB SCH (08:30)
[2020-03-19] MEDS ORDERED: NIFEdipine XL 60 MG TAB PO SCH (09:00)
[2020-03-19] MEDS: Labetalol HCl 100 MG/20 ML VIAL SLOW IVP PRN (10:15)
--- NOTE | 2020-03-19 10:53 | PDOC.HOSPP ---
- Subjective Encounter Date: 03/19/20 Encounter Time: 08:50 Subjective: Patient was seen this morning for follow-up on dyspnea with possible new CHF. She states that she has been urinating very frequently with the IV Lasix, however there are no accurate I's and O's on the chart to verify output. Daily weight has stayed the same as yesterday. Overall the patient states she is feeling a lot better and the "rattle in her chest" has gone away. She was able to sleep last night still propped up on 2 pillows. The patient did say that she felt great when she took a shower this morning and did not feel short of breath. Currently awaiting cardiology consult and echo. - Objective Vital Signs & Weight: Vital Signs (12 hours) Temp Pulse Resp BP Pulse Ox 03/19/20 10:15 90 03/19/20 10:14 190/85 H 03/19/20 08:02 90 03/19/20 08:01 90 03/19/20 07:49 98.5 F 90 18 200/95 H 97 03/19/20 04:00 99.1 F 94 18 178/92 H 97 03/19/20 00:00 182/93 H Weight Weight 174 lb I&O: 03/18/20 03/19/20 03/20/20 06:59 06:59 06:59 Intake Total 300 Balance 300 Result Diagrams: 03/19/20 04:38 03/19/20 04:38 EKG Reviewed by me: Yes Hospitalist ROS - Medication Medications: Active Medications Generic Name Dose Route Start Last Admin Trade Name Freq PRN Reason Stop Dose Admin Acetaminophen 1,000 mg 03/18/20 16:40 03/19/20 08:02 Acetaminophen 500 Mg Tab PO 1,000 mg Q6H PRN Administration Mild Pain (1-3) Aspirin 325 mg 03/19/20 09:00 03/19/20 08:02 Aspirin 325 Mg Tab PO 325 mg DAILY ANDREW Administration Carvedilol 25 mg 03/19/20 08:00 03/19/20 08:02 Carvedilol 25 Mg Tab PO 25 mg BID- ANDREW Administration Furosemide 20 mg 03/19/20 06:00 03/19/20 06:01 Furosemide 20 Mg/2 Ml Vial SLOW IVP 20 mg 0600,1400 ANDREW Administration Hydralazine HCl 75 mg 03/19/20 09:00 03/19/20 08:01 Hydralazine 25 Mg Tab PO 75 mg TID ANDREW Administration Magnesium Sulfate 2 gm/ Device 50 mls @ 50 mls/hr 03/19/20 08:30 03/19/20 10:15 IVPB 03/19/20 12:00 50 mls NOW ANDREW Administration Labetalol HCl 20 mg 03/18/20 16:40 03/19/20 10:15 Labetalol Hcl 100 Mg/20 Ml Vial SLOW IVP 20 mg Q4H PRN Administration SBP > 180 and HR >/= 70 Nifedipine 60 mg 03/19/20 09:00 03/19/20 08:02 Nifedipine Xl 60 Mg Tab PO 60 mg DAILY ANDREW Administration Nitroglycerin 1 inch 03/18/20 21:00 03/19/20 08:02 Nitroglycerin 2% Ointment 1 Inch/1 Gm Packet TOP 1 inch BID ANDREW Administration Potassium Chloride 40 meq 03/19/20 08:15 03/19/20 10:14 Potassium Chloride 20 Meq Tab PO 03/19/20 12:00 40 meq NOW ANDREW Administration Sodium Chloride 10 ml 03/19/20 09:00 03/19/20 10:16 Flush - Normal Saline 10 Ml Syringe IVF 10 ml Q12HR ANDREW Administration - Exam General Appearance: NAD, awake alert ENT: normocephalic atraumatic Neck: supple Heart: RRR, no murmur, no gallops, no rubs, normal peripheral pulses Respiratory: CTAB, no wheezes, no rales, no ronchi, normal chest expansion Gastrointestinal: soft, non-tender, non-distended, normal bowel sounds Extremities: 1+ LE edema Musculoskeletal: normal tone Psychiatric: normal affect, normal behavior Hosp A/P - Plan Shortness of breath, possible new onset CHF exacerbation Continue Lasix IV twice daily Echo ordered for today Cardiology consult Continue to replace electrolytes Hypertension Restart home medications As needed antihypertensives available Hypokalemia 3.1 this a.m. Replace now and continue to monitor Electrolyte replacement protocol in place Chronic kidney disease Avoid nephrotoxic meds Recheck labs in a.m. Stable from yesterday
[2020-03-19 13:22] LABS: Cardiac Risk 3.3 (Less than 4.5)
[2020-03-19 13:51] LABS: Free T4 (Free Thyroxine) 1.14 ng/dL (0.70-1.48); Thyroid Stimulating Hormone 0.1412 uIU/mL (0.35-4.94)
[2020-03-19] MEDS ORDERED: Iopamidol-370 76% 500 ML 1 ML ONE (14:32)
[2020-03-19] MEDS: Carvedilol 25 MG TAB PO SCH (17:35)
--- NOTE | 2020-03-19 18:43 | CT ---
Exam: CT angiogram of the chest HISTORY: Congestive heart failure. Shortness of breath. Aneurysm. Bypass surgery. Stent placed. COMPARISON: 11/15/2018 TECHNIQUE: CT angiogram of the chest is performed in the axial plane. Three-dimensional reformatted i mages are submitted for interpretation FINDINGS: Lower neck: Asymmetric increased soft tissue density in the right neck. Mediastinum: No mass, lymphadenopathy or hematoma. HEART: Normal heart size. No significant pericardial fluid. There is left ventricular hypertrophy. Aorta: The ascending thoracic aorta is enlarged measuring 5.5 x 6.6 cm. Redemonstration of the endova scular stent starting in the mid aortic arch and extending into the proximal descending thoracic aorta. There is stable fluid attenuation adjacent to the aortic arch and pericardial recess. Previous noted abnormal hypodensity in the right paratracheal region is no longer evident. There is presumed surgical intervention for a previous identified aneurysmal Day and right subclavian arter y. Upper solid abdominal viscera: Subcentimeter hypodensities in the left and right hepatic lobe, unchan ged. Hepatic cysts are favored. Intrinsic hyperdense lesion in the left renal cortex measures 1.7 cm likely representing a hemorrhagic or complex cyst. Otherwise, solid organs do not demonstrate aquiles tional abnormality. Trachea and central bronchi: Patent Pleural spaces: Small bilateral pleural effusions Lung parenchyma: Scattered groundglass opacities suggesting edema. Pneumothorax: None Osseous structures: No lytic or blastic lesions Pulmonary arteries: Adequate contrast opacification pulmonary arterial system to the level of segment al arteries. No filling defect to suggest pulmonary embolism IMPRESSION: 1. No evidence of pulmonary artery embolism to the level segmental arteries 2. 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 Right subclavian artery is presumed to have been occluded by placement of endovascular stent. There has been interval development of a aneurysmal dilatation involving the ascending thoracic aorta. 3. Pulmonary edema. 4. Left ventricular hypertrophy.
[2020-03-19 19:19] LABS: Anion Gap 16 mmol/L (10-20); BUN (Urea Nitrogen) 17 mg/dL (7.0-18.7); Calc. Creatinine Clearance 72 mL/min (70-130); Calcium 8.6 mg/dL (7.8-10.44); Carbon Dioxide 23 mmol/L (22-29); Chloride 104 mmol/L (98-107); Glucose 93 mg/dL (70-105); Potassium 3.1 mmol/L (3.5-5.1); Sodium 140 mmol/L (136-145)
[2020-03-19] MEDS: NIFEdipine XL 60 MG TAB PO SCH (20:50)
[2020-03-20 04:05] LABS: #Basophils 0.1 thou/uL (0.0-0.2); #Eosinphils 0.1 thou/uL (0.0-0.7); #Lymphocytes 2.1 thou/uL (1.20-3.40); #Monocytes 0.4 thou/uL (0.11-0.59); #Neutrophils 3.2 thou/uL (1.40-6.50); %Basophils 1.7 % (0.0-1.0); %Eosinophils 1.2 % (0.0-10.0); %Lymphocytes 35.4 % (21.0-51.0); %Monocytes 7.6 % (0.0-10.0); %Neutrophils 54.2 % (42.0-75.0); Hemoglobin 13.4 g/dL (12.0-16.0); Mean Corpuscular HGB CONC 33.2 g/dL (32.0-36.0); Mean Corpuscular Hemoglobin 30.5 pg (27.0-31.0); Mean Platelet Volume 8.4 fL (7.4-10.4); Platelet Count 204 thou/uL (130-400); RBC Distribution Width 12.7 % (11.5-14.5); Red Blood Cell (RBC) Count 4.39 mill/uL (4.20-5.40); White Blood Cell (WBC) Count 5.8 thou/uL (4.8-10.8)
[2020-03-20 04:25] LABS: Anion Gap 16 mmol/L (10-20); BUN (Urea Nitrogen) 16 mg/dL (7.0-18.7); Calc. Creatinine Clearance 76 mL/min (70-130); Calcium 8.8 mg/dL (7.8-10.44); Carbon Dioxide 20 mmol/L (22-29); Chloride 106 mmol/L (98-107); Glucose 93 mg/dL (70-105); Potassium 3.2 mmol/L (3.5-5.1); Sodium 139 mmol/L (136-145)
--- NOTE | 2020-03-20 05:23 | CON ---
DATE OF CONSULTATION: HISTORY OF PRESENT ILLNESS: The patient is a 49-year-old woman with a history of endograft into her aorta and coronary bypass graft surgery, who presents with increasing dyspnea. 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 The patient states she had an endograft placed. She also reports at that time she also underwent coronary artery bypass graft surgery. The patient also has history of difficulty with aneurysms in her extremities. The patient has also a history of renal failure and had placement of an AV fistula. 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 The patient did have return of her renal function. She has been in her usual state of health, but has had difficulty controlling her blood pressure and noticed having increasing dyspnea. The patient denied any chest discomfort. PAST MEDICAL HISTORY: 1. Possible coronary bypass surgery. 2. 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 3. Poorly controlled hypertension. 4. Obesity. PAST SURGICAL HISTORY: Hand surgery and possible coronary bypass surgery. SOCIAL HISTORY: Nonsmoker. ALLERGIES: NO KNOWN DRUG ALLERGIES. PHYSICAL EXAMINATION: GENERAL: This is a well-developed woman, in no acute distress. VITAL SIGNS BP NECK : No JVD. LUNGS: Clear to A&P HEART: RRR 2/6 holosystolic murmur. 3/6 diastolic murmur ABDOMEN: Distended LABORATORY DATA: Sodium 141, potassium is 3.1, chloride 107, bicarbonate 22, BUN 18, creatinine 1.2, glucose 89. TSH is 0.0839. White blood cell count 4.4, hemoglobin 12.3, hematocrit 36.8, platelet 193. EKG normal sinus rhythm, left atrial enlargement, voltage are criteria for left ventricular hypertrophy. IMPRESSION: 1. Congestive heart failure. 2. Malignant hypertension. 3. Severe aortic regurgitation. 4. End-stage renal disease. 5. History of an endograft in thoracic aorta. 6. History of possible coronary bypass surgery. 7. Obesity. 8. Hyperthyroidism. This patient presents with congestive heart failure. This is probably secondary to poorly controlled hypertension and aortic regurgitation. I will try to adjust the patient's medications. We will obtain records from her previous evaluation at [facility]. We will follow this patient with you through her hospitalization. Job ID: [id number] [facility]
[2020-03-20] MEDS: Furosemide 20 MG/2 ML VIAL SLOW IVP SCH ×2 (05:26→14:03)
[2020-03-20] MEDS ORDERED: Potassium Chloride 20 MEQ TAB PO SCH (06:45)
[2020-03-20] MEDS: Acetaminophen 500 MG TAB PO PRN (08:05)
[2020-03-20] MEDS: NIFEdipine XL 60 MG TAB PO SCH (08:05)
[2020-03-20] MEDS: hydrALAZINE 25 MG TAB PO SCH ×2 (08:06→14:03)
[2020-03-20] MEDS: Carvedilol 25 MG TAB PO SCH (08:06)
[2020-03-20] MEDS: Aspirin 325 MG TAB PO SCH (08:06)
[2020-03-20] MEDS: Nitroglycerin 2% Ointment 1 INCH/1 GM Packet TOP SCH (08:08)
--- NOTE | 2020-03-20 09:43 | PDOC.HOSPP ---
- Subjective Encounter Date: 03/20/20 Encounter Time: 08:45 - Objective Vital Signs & Weight: Vital Signs (12 hours) Temp Pulse Resp BP Pulse Ox 03/20/20 07:03 97.8 F 92 16 161/87 H 96 03/20/20 04:00 99.2 F 94 18 147/77 H 97 Weight Weight 170 lb 6.4 oz I&O: 03/19/20 03/20/20 03/21/20 06:59 06:59 06:59 Intake Total 300 980 Output Total 1150 Balance 300 -170 Result Diagrams: 03/20/20 03:32 03/20/20 03:32 Hospitalist ROS - Medication Medications: Active Medications Generic Name Dose Route Start Last Admin Trade Name Freq PRN Reason Stop Dose Admin Acetaminophen 1,000 mg 03/18/20 16:40 03/20/20 08:05 Acetaminophen 500 Mg Tab PO 1,000 mg Q6H PRN Administration Mild Pain (1-3) Aspirin 325 mg 03/19/20 09:00 03/20/20 08:06 Aspirin 325 Mg Tab PO 325 mg DAILY ANDREW Administration Carvedilol 50 mg 03/19/20 17:00 03/20/20 08:06 Carvedilol 25 Mg Tab PO 50 mg BID-WM ANDREW Administration Furosemide 20 mg 03/19/20 06:00 03/20/20 05:26 Furosemide 20 Mg/2 Ml Vial SLOW IVP 20 mg 0600,1400 ANDREW Administration Hydralazine HCl 75 mg 03/19/20 09:00 03/20/20 08:06 Hydralazine 25 Mg Tab PO 75 mg TID ANDREW Administration Labetalol HCl 20 mg 03/18/20 16:40 03/19/20 10:15 Labetalol Hcl 100 Mg/20 Ml Vial SLOW IVP 20 mg Q4H PRN Administration SBP > 180 and HR >/= 70 Nifedipine 60 mg 03/19/20 21:00 03/20/20 08:05 Nifedipine Xl 60 Mg Tab PO 60 mg BID ANDREW Administration Nitroglycerin 1 inch 03/18/20 21:00 03/20/20 08:08 Nitroglycerin 2% Ointment 1 Inch/1 Gm Packet TOP Not Given BID [facility] Potassium Chloride 40 meq 03/20/20 06:45 03/20/20 08:05 Potassium Chloride 20 Meq Tab PO 03/20/20 10:00 40 meq NOW ANDREW Administration Sodium Chloride 10 ml 03/19/20 09:00 03/20/20 08:06 Flush - Normal Saline 10 Ml Syringe IVF 10 ml Q12HR ANDREW Administration Hosp A/P - Plan Shortness of breath- resolved, new onset CHF exacerbation Continue Lasix IV twice daily Echo completed, 50-55% EF Continue to replace electrolytes Covid negative Hypertension Home medications restarted and adjusted by cardiology As needed antihypertensives available Hypokalemia 3.2 this a.m. Replace now and continue to monitor Electrolyte replacement protocol in place Chronic kidney disease Avoid nephrotoxic meds Recheck labs in a.m. Stable from yesterday
[2020-03-20 15:35] VITALS: BP 180/89; TEMP 98
--- NOTE | 2020-03-20 16:03 | PDOC.DS.DS ---
Provider - Provider Date of Admission: 03/18/20 15:54 Date of Discharge: 03/20/20 (transfer to [facility]) Admitting Provider: Shabana Barfield MD Consultations: Cardiology Primary Care Physician: RENEE Galvan Course - Hospital Course Resuscitation Status: 03/18/20 16:35 Resuscitation Status Routine Co-Sign Provider: Resuscitation Status: FULL: Full Resuscitation Discussed with: pt - Labs Lab Results: 03/20/20 03:32 03/20/20 03:32 Abnormal Lab Results - Last 48 hrs 03/19/20 04:38: Potassium 3.1 L, Creatinine 1.20 H 03/19/20 04:38: TSH 3rd Generation 0.0839 L 03/19/20 04:38: WBC 4.4 L, RBC 4.05 L 03/19/20 12:53: TSH 3rd Generation 0.1412 L 03/19/20 12:53: Total T3 64 L 03/19/20 18:49: Potassium 3.1 L, Creatinine 1.19 H 03/20/20 03:32: Potassium 3.2 L, Carbon Dioxide 20 L, Creatinine 1.13 H 03/20/20 03:32: Basophils % 1.7 H - Diagnostic Interpretation CT scan - chest Status: report reviewed by me - Physical Exam Vitals: Vital Signs (12 hours) Temp Pulse Pulse Pulse Resp BP BP 03/20/20 15:05 98.0 F 94 18 03/20/20 11:59 97.8 F 80 15 03/20/20 10:57 80 86 169/90 H 182/89 H 03/20/20 07:03 97.8 F 92 16 03/20/20 04:00 99.2 F 94 18 BP BP Pulse Ox 03/20/20 15:05 180/89 H 98 03/20/20 11:59 162/79 H 98 03/20/20 10:57 03/20/20 07:03 161/87 H 96 03/20/20 04:00 147/77 H 97 Weight Weight 170 lb 6.4 oz Physical Exam: The patient was seen and examined on the day of discharge. Problem - Discharge Plan Assessment: Patient is a 49-year-old female who presented to the ER for new onset congestive heart failure. She was positive for orthopnea upon arrival along with the feeling of throat congestion. Patient also states she had pedal edema intermittently for a year. Her BNP was 1247.6 and her potassium was 3.2 upon arrival to the ER. Her troponins were negative x3. Cardiology was consulted to provide further insight with her care. Over her stay she diuresed at least 4 pounds of fluid off. She had a CTA of her chest completed which showed interval development of a aneurysmal dilation involving the ascending thoracic aorta along with left ventricle hypertrophy. Upon recommendation of her tactical debriefer she is being transferred to [facility] in [place]. - Time spent with Patient (mins): 25 Plan - Discharge Medications Home Medications: Medication Instructions Recorded Confirmed Type Gabapentin 100 mg PO TID 11/15/18 03/18/20 History NIFEdipine [Nifedipine ER] 60 mg PO DAILY 11/15/18 03/18/20 History Terazosin HCl 1 mg PO DAILY 11/15/18 03/18/20 History hydrALAZINE HCl [Hydralazine HCl] 75 mg PO TID #90 tablet 11/16/18 03/18/20 Rx Docusate Sodium [Stool Softener] 50 mg PO BID 03/18/20 03/18/20 History Iron 18 mg PO DAILY 03/18/20 03/18/20 History Mv-Mn/Iron/Folic Acid/Herb 190 1 tablet PO DAILY 03/18/20 03/18/20 History [Vitamin D3 Complete Caplet] Aspirin 325 mg PO DAILY tab 03/20/20 Rx Carvedilol [Coreg] 50 mg PO BID-WM tab 03/20/20 Rx NIFEdipine [Procardia XL] 60 mg PO BID tab 03/20/20 Rx Allergies: No Known Allergies Allergy (Verified 07/04/19 18:52) - Discharge Instructions IV Therapy:: Peripheral Line Care (transfer to [facility]) - Follow up Plan Referrals: [facility] [place] [Other] (patient to transfer to [facility]) Debbie Henry FNP [Primary Care Provider] - 7 Days (CALL OFFICE TO SCHEDULE APPOINTMENT) Disposition: OTHER HOSPITAL IN Quality - Care Measures CORE MEASURES:: HF - Stroke/TIA Did you prescribe antithrombotic therapy?: Yes
--- NOTE | 2020-03-22 03:40 | PQF ---
Dear : Liat Brown Date 03/22/2020 Please exercise your independent, professional judgment in responding to the clarification form. Clinical indicators are provided on the bottom of this form for your review Can you please further clarify the type of CHF exacerbation? Please check appropriate box(es): HEART FAILURE: [ ] Systolic / HFrEF [ ] Diastolic / HFpEF [ ] Combined Systolic / Diastolic [ ] Other diagnosis, please specify [ x ] Unable to determine Physician Signature: Date/Time: For continuity of documentation, please document condition throughout progress notes and discharge summary. Thank You. To be completed by CDI/Coding staff for physician review: Present Clinical Indicators - Signs / Symptoms / Labs Results and Location in Medical Record [ x ] Pulmonary vascular congestion Chest X ray 03/18 [ x ] Bilateral pleural effusion Chest X ray 03/18 [ x ] BNP: 1247.6H Laboratory [ x ] Shortness of breath possible new onset CHF exacerbation H and P pg.4 [ x ] EF at 50-55% Echocardiogram 03/19 [ x ] Patient does endorse orthopnea, cough with clear phlegm HP 03/18 [ x ] noted that she has had pedal edema HP 03/18 [ x ] Wheezes HP 03/18 Present Risk Factors Results and Location in Medical Record [ x ] ESRD H and P pg.1 [ x ] HTN H and P pg.1 [ x ] Obesity Consult pg.1 [ x ] Aortic Regurgitation Consult 03/20 Present Treatments Results and Location in Medical Record [ x ] Cardiology Consult Dr. Estrada 03/20 [ x ] Echocardiogram Echocardiogram 03/19 [ x ] IV Lasix 40mg IV MAR [ x ] Labetalol 20mg IV MAR 03/18 [ x ] Carvedilol 25mg Oral JUN 24 [ x ] Nifedipine 60mg Oral JUN 24 CDS/Grinder Set Up Operator Signature: [email or web address] Phone #: ext [phone] Date 03/22/2020 This is a permanent part of the Medical Record [facility]
== END 2020-03-20 16:40 | disposition short-term general hospital (02) | DRG 291 ==
LOC: ERS 14:00 → OBSVTOIN 15:54 → 2NO 15:54
PROVIDERS: ADMIT Internal Medicine; ATTEND Internal Medicine
DX: I13.2 Hypertensive heart and chronic kidney disease with heart failure and with stage 5 chronic kidney disease, or end stage renal disease (principal); N18.6 End stage renal disease; Z20.828 Contact with and (suspected) exposure to other viral communicable diseases; I50.9 Heart failure, unspecified; F32.9 Major depressive disorder, single episode, unspecified; F41.9 Anxiety disorder, unspecified; E87.6 Hypokalemia; E66.9 Obesity, unspecified; I35.1 Nonrheumatic aortic (valve) insufficiency; E03.9 Hypothyroidism, unspecified; Z79.899 Other long term (current) drug therapy; Z79.82 Long term (current) use of aspirin; Z99.2 Dependence on renal dialysis; Z95.1 Presence of aortocoronary bypass graft; Z68.27 Body mass index [BMI] 27.0-27.9, adult
CPT/HCPCS: 36415; 71045; 71275; 80048; 80053; 80061; 83735; 83880; 84439; 84443; 84480; 84481; 84484; 85025; 87635; 93005; 93306; 93798; 94664; 96374; 96375; 96376; G0378; J1100; J1940; J3475; Q9967; U0003

== ENCOUNTER 2022-08-05 13:24 | Emergency (ER) | payer OTHER, SELFPAY ==
[2022-08-05 14:12] LABS: Bilirubin Negative (Negative); Blood, Urine Negative (Negative); Clarity Clear (Clear); Glucose, Urine (Dipstick) Normal (Negative); Ketone, Urine Negative (Negative); Leukocyte Negative Leu/uL (Negative); Nitrite Negative (Negative); Protein, Urine (Dipstick) 20 mg/dL (Neg-Trace); Specific Gravity, Urine 1.009 (1.002-1.036); Urobilinogen Normal mg/dL (Less than 2)
[2022-08-05 14:47] LABS: #Basophils 0.1 thou/uL (0.0-0.2); #Lymphocytes 1.9 thou/uL (1.20-3.40); #Monocytes 0.4 thou/uL (0.11-0.59); %Eosinophils 0.8 % (0.0-10.0); %Lymphocytes 35.2 % (21.0-51.0); %Monocytes 6.7 % (0.0-10.0); %Neutrophils 56.3 % (42.0-75.0); Hemoglobin 13.8 g/dL (12.0-16.0); Mean Corpuscular HGB CONC 33.4 g/dL (32.0-36.0); Mean Corpuscular Volume 92.9 fl (78.0-98.0); Mean Platelet Volume 7.4 fL (7.4-10.4); Platelet Count 227 10x3/uL (130-400); RBC Distribution Width 11.6 % (11.5-14.5); Red Blood Cell (RBC) Count 4.45 mill/uL (4.20-5.40); White Blood Cell (WBC) Count 5.3 10x3/uL (4.8-10.8)
[2022-08-05 15:18] LABS: ALT (SGPT) 12 U/L (8-55); AST (SGOT) 22 U/L (5-34); Albumin 4.1 g/dL (3.5-5.0); Alkaline Phosphatase 72 U/L (40-110); Anion Gap 13 mmol/L (10-20); BUN (Urea Nitrogen) 22 mg/dL (7.0-18.7); Bilirubin, Total 0.5 mg/dL (0.2-1.2); Calc. Creatinine Clearance 0 mL/min (70-130); Calcium 9.7 mg/dL (7.8-10.44); Carbon Dioxide 26 mmol/L (22-29); Chloride 103 mmol/L (98-107); Estimated GFR 49; Globulin 3.7 g/dL (2.4-3.5); Glucose 94 mg/dL (70-105); Lipase 56 U/L (8-78); Potassium 3.3 mmol/L (3.5-5.1); Protein, Total 7.8 g/dL (6.0-8.3); Sodium 139 mmol/L (136-145)
[2022-08-05] MEDS ORDERED: Iopamidol-370 76% 500 ML MDV (1 ML CHARGE) ONE (15:51)
== END 2022-08-05 17:29 | disposition home or self-care (01) ==
LOC: ERS 13:24
DX: R07.81 Pleurodynia (principal); I12.0 Hypertensive chronic kidney disease with stage 5 chronic kidney disease or end stage renal disease; N18.6 End stage renal disease; I25.10 Atherosclerotic heart disease of native coronary artery without angina pectoris; Z99.2 Dependence on renal dialysis; Z79.899 Other long term (current) drug therapy; Z79.82 Long term (current) use of aspirin
CPT/HCPCS: 36415; 71045; 71275; 80053; 81003; 83690; 84484; 85025; 85379; 93005; Q9967

== ENCOUNTER 2023-03-15 10:33 | Outpatient (CLI) | payer OTHER | END 2023-03-15 10:34 | disposition home or self-care (01) | LOC: BICMAMMO 10:33 | PROVIDERS: ATTEND Physician Assistant | DX: Z12.31 Encounter for screening mammogram for malignant neoplasm of breast (principal); Z80.3 Family history of malignant neoplasm of breast | CPT/HCPCS: 77063; 77067 ==